=== PATIENT | male | born 1970 | race Caucasian/White ===

== ENCOUNTER 2019-08-25 11:53 | Emergency (ER) | payer BC ==
[2019-08-25 13:43] LABS: ABS Lymphocytes 1.6 10^3/ul (1.0-4.8); ABS Monocytes 0.6 10^3/ul (0-0.8); ABS Neutrophils 5.2 10^3/ul (1.5-7.7); Eosinophil % 0.5 %; Hematocrit 44 % (42-52); Hemoglobin 15.6 g/dL (14.0-18.0); Lymphocyte % 21.5 %; Mean Corpuscular HGB Conc 35 g/dL (31-36); Mean Corpuscular Hemoglobin 33 pg (27-31); Mean Corpuscular Volume 94 fL (80-94); Mean Platelet Volume 7.6 fL (7.4-10.4); Nucleated Red Blood Cells % 0.1; Platelet Count 245 10^3/uL (150-450); Red Blood Count 4.69 10^6 /uL (4.18-5.48); Red Cell Distribution Width 13 % (10-15); White Blood Count 7.5 10^3/uL (3.5-10.8)
--- NOTE | 2019-08-25 13:47 | ED ---
Abdominal Pain/Male - HPI Summary HPI Summary: Pt is a 48 y/o M presenting to the ED for LLQ abdominal pain. Pt states he was stepping off a ladder at work when he missed a step after which he began to feel left-sided flank pain, left-sided back pain, and LLQ abdominal pain. Pt describes the back pain as dull and the abdominal pain as sharp. Pt rates the pain as 8/10 in severity. Pt admits nausea. Pt denies fever, vomiting, diarrhea , changes in bowel movements, or hematuria. Pt was asymptomatic before the pain began. Pt has a PMHx of De Quervains syndrome and a FMHx of DM, stomach cancer , and breast cancer. Pt stopped tobacco use 2 weeks ago. Pt works in construction. Allergies noted. - History of Current Complaint Chief Complaint: EDFlankPain Stated Complaint: LEFT ABDOMINAL PAIN PER PT Time Seen by Provider: 08/25/19 13:28 Hx Obtained From: Patient Onset/Duration: Sudden Onset, Lasting Hours, Still Present Timing: Constant, Lasting Hours Severity Initially: Severe Severity Currently: Severe Pain Intensity: 8 Pain Scale Used: 0-10 Numeric Location: Discrete At: LLQ, Flank - Left Radiates: Yes Radiates to: Back - Lower left Character: Sharp - Abdominal pain, Dull - Back pain Aggravating Factor(s): Nothing Alleviating Factor(s): Nothing Associated Signs And Symptoms: Positive: Back Pain - Left lower, Nausea, Other - Negative changes in bowel movements. Negative: Fever, Urinary Symptoms - Negative hematuria, Vomiting, Diarrhea - Allergies/Home Medications Allergies/Adverse Reactions: Allergies Allergy/AdvReac Type Severity Reaction Status Date / Time No Known Allergies Allergy Verified 08/25/19 12:06 Home Medications: Home Medications Cholecalciferol TAB* [Vitamin D TAB*] 1,000 unit PO DAILY 08/25/19 [History Confirmed 08/25/19] Escitalopram * [Lexapro 10 mg (NF)] 10 mg PO DAILY 08/25/19 [History Confirmed 08/25/19] Ibuprofen TAB* [Motrin TAB* 400 MG] 400 mg PO Q6H PRN 08/25/19 [History Confirmed 08/25/19] Tadalafil (Nf) [Cialis (NF)] 5 mg PO .EVERY 3 WEEKS 08/25/19 [History Confirmed 08/25/19] traZODone TAB* [Desyrel TAB*] 50 mg PO BEDTIME 08/25/19 [History Confirmed 08/25] PMH/Surg Hx/FS Hx/Imm Hx Previously Healthy: Yes Endocrine/Hematology History: Denies: Hx Diabetes Cardiovascular History: Denies: Hx Hypercholesterolemia, Hx Hypertension Musculoskeletal History: Reports: Other Musculoskeletal History - Hx De Quervain 's syndrome Sensory History: Denies: Hx Legally Blind, Hx Deafness Opthamlomology History: Denies: Hx Legally Blind EENT History: Denies: Hx Deafness - Surgical History Surgical History: None Surgery Procedure, Year, and Place: None - Immunization History Date of Influenza Vaccine: 08/08/2019 Immunizations Up to Date: Yes Infectious Disease History: No Infectious Disease History: Denies: Traveled Outside the [place] in Last 30 Days - Family History Known Family History: Positive: Diabetes, Other - Stomach and breast cancer - Social History Occupation: Employed Full-time Alcohol Use: Occasionally Hx Substance Use: Yes Substance Use Type: Reports: Marijuana Substance Use Comment - Amount & Last Used: couple times a month Hx Tobacco Use: Yes Smoking Status (MU): Former Smoker Review of Systems Negative: Fever Positive: Abdominal Pain - LLQ and left flank, Nausea, Other - Negative changes in bowel movements. Negative: Vomiting, Diarrhea Negative: hematuria Positive: Myalgia - Back pain All Other Systems Reviewed And Are Negative: Yes Physical Exam - Summary Physical Exam Summary: Constitutional: Well-developed, Well-nourished, Alert. (-) Distressed Skin: Warm, Dry HENT: Normocephalic; Atraumatic Eyes: Conjunctiva normal Neck: Musculoskeletal ROM normal neck. (-) JVD, (-) Stridor, (-) Nuchal rigidity Cardio: Rhythm regular, rate normal, Heart sounds normal; Intact distal pulses; Radial pulses are 2+ and symmetric. (-) Murmur Pulmonary/Chest wall: Effort normal. (-) Respiratory distress, (-) Wheezes, (-) Rales Abd: Soft, (-) Distension, (-) Rebound. LLQ tenderness with voluntary guarding. Musculoskeletal: (-) Edema. Lymph: (-) Cervical adenopathy Neuro: Alert, Oriented x3 Psych: Mood and affect Normal Triage Information Reviewed: Yes Vital Signs On Initial Exam: Initial Vitals Temp Pulse Resp BP Pulse Ox 98.3 F 57 18 137/87 97 08/25/19 12:01 08/25/19 12:01 08/25/19 12:01 08/25/19 12:01 08/25/19 12:01 Vital Signs Reviewed: Yes Procedures - Sedation Patient Received Moderate/Deep Sedation with Procedure: No Diagnostics - Vital Signs Vital Signs Temp Pulse Resp BP Pulse Ox 08/25/19 13:00 99.4 F 51 17 142/79 97 08/25/19 12:01 98.3 F 57 18 137/87 97 - Laboratory Lab Results: Lab Results 08/25/19 Range/Units 13:29 WBC 7.5 (3.5-10.8) 10^3/uL RBC 4.69 (4.18-5.48) 10^6 /uL Hgb 15.6 (14.0-18.0) g/dL Hct 44 (42-52) % MCV 94 (80-94) fL MCH 33 H (27-31) pg MCHC 35 (31-36) g/dL RDW 13 (10-15) % Plt Count 245 (150-450) 10^3/uL MPV 7.6 (7.4-10.4) fL Neut % (Auto) 70.1 % Lymph % (Auto) 21.5 % Starke % (Auto) 7.6 % Eos % (Auto) 0.5 % Baso % (Auto) 0.3 % Absolute Neuts (auto) 5.2 (1.5-7.7) 10^3/ul Absolute Lymphs (auto) 1.6 (1.0-4.8) 10^3/ul Absolute Monos (auto) 0.6 (0-0.8) 10^3/ul Absolute Eos (auto) 0.0 (0-0.6) 10^3/ul Absolute Basos (auto) 0.0 (0-0.2) 10^3/ul Absolute Nucleated RBC 0.0 10^3/ul Nucleated RBC % 0.1 Result Diagrams: 08/25/19 13:29 08/25/19 13:29 Lab Statement: Any lab studies that have been ordered have been reviewed, and results considered in the medical decision making process. - CT Abdomen/Pelvis CT CT Interpretation Completed By: Radiologist Summary of CT Findings: Abdomen/Pelvis CT IMPRESSION: 1. Evaluation of the gastrointestinal tract is limited in the absence of oral contrast. There is questionable wall thickening of the sigmoid colon measuring up to 6 mm. Please. correlate to signs and symptoms of distal colitis. 2. Likely hepatic steatosis. Reviewed by ED physician. Re-Evaluation - Re-Evaluation First Eval Re-Evaluation Time: 15:40 Change: Improved Comment: At 15:40, pt was on his phone and pain improved. Second Eval Re-Evaluation Time: 16:35 Change: Unchanged Comment: At 16:35, pt has RBC in his urine and will order abdomen/pelvis CT to assess for stone Third Eval Re-Evaluation Time: 17:15 Change: Improved - Patient reports pain is improved, CT w possible colitis, patient denies infectious symptoms. Advised to return if he develops infectious symptoms. Abdominal Pain Male Course/Dx - Course Course Of Treatment: 48-year-old male who presents with left lower quadrant and left flank abdominal pain. DDx includes renal stone, diverticulitis, muscle strain, testicular torsion. Exam relatively unremarkable today, no rigidity or suggestions of acute surgical abd. Pt with negative Mayers's on exam. Will obtain cbc to assess for underlying infection. Will obtain UA to assess for UTI and stone. Denies testicular pain, low suspicion for pathology Will continue to monitor - Diagnoses Provider Diagnoses: LLQ abdominal pain, Left flank pain Discharge ED - Sign-Out/Discharge Documenting (check all that apply): Patient Departure - Discharge - Discharge Plan Condition: Stable Disposition: HOME Patient Education Materials: Abdominal Pain (ED) Referrals: Cydney Church MD [Primary Care Provider] - Additional Instructions: You were seen in the emergency department for lower abdominal pain. Your CT scan did not show any abnormalities aside from mild inflammation of your colon. If you have worsening pain, diarrhea, fevers please return to the emergency department If any studies were not completed at the time of discharge you will be called with the relevant results. Please follow up with your primary care doctor in next 2-3 days and return to emergency department for worsening or concerning symptoms. It was a pleasure taking care of you today. - Billing Disposition and Condition Condition: STABLE Disposition: Home - Attestation Statements Document Initiated by Scribe: Yes Documenting Scribe: Tracy Frye Provider For Whom Scribe is Documenting (Include Credential): Zina Holland MD Scribe Attestation: I, Tracy Frye, scribed for Zina Holland MD on 08/25/19 at 1731. Scribe Documentation Reviewed: Yes Provider Attestation: The documentation as recorded by the scribe, Tracy Frye accurately reflects the service I personally performed and the decisions made by me, Zina Holland MD Status of Scribe Document: Viewed
[2019-08-25] MEDS ORDERED: NS 0.9% 1000 ML** 1,000 ML IV ONE (13:50)
[2019-08-25] MEDS ORDERED: Ondansetron INJ* 2 MG/ML VIAL IV ONE (13:50)
[2019-08-25] MEDS ORDERED: Ketorolac INJ* 30 MG/ML 1 ML VIAL IV ONE (13:50)
[2019-08-25 14:00] LABS: Albumin 4.6 g/dL (3.2-5.2); Albumin/Globulin Ratio 1.7 (1-3); BUN/Creatinine Ratio 17.3 (8-20); Calcium 9.5 mg/dL (8.6-10.3); EGFR African American 135.7 (>60); EGFR Non-African American 112.1 (>60); Globulin 2.7 g/dL (2-4); Potassium 4.2 mmol/L (3.5-5.0); Total Bilirubin 0.5 mg/dL (0.2-1.0); Total Protein 7.3 g/dL (6.4-8.9)
[2019-08-25 16:21] LABS: Urine Appearance Cloudy; Urine Bacteria 1+ (Absent); Urine Bilirubin Negative (Negative); Urine Blood Negative (Negative); Urine Color Yellow; Urine Glucose Negative (Negative); Urine Ketones 1+ (Negative); Urine Nitrite Negative (Negative); Urine Protein 1+(30 mg/dL) (Negative); Urine Red Blood Cell 2+(6-10/hpf) (Absent); Urine Specific Gravity 1.023 (1.010-1.030); Urine Urobilinogen Negative (Negative); Urine White Blood Cell Absent (Absent)
[2019-08-25] MEDS ORDERED: Iohexol 300* (CONTRAST) 10 ML SDV IV ONE (16:31)
[2019-08-25 17:23] VITALS: BP 133/79
== END 2019-08-25 17:49 | disposition home or self-care (01) ==
LOC: ED 11:53
DX: R10.32 Left lower quadrant pain (principal); M54.9 Dorsalgia, unspecified; R11.2 Nausea with vomiting, unspecified; Z79.899 Other long term (current) drug therapy; Z87.891 Personal history of nicotine dependence
CPT/HCPCS: 36415; 74177; 80053; 81003; 81015; 85025; 87086; 96361; 96374; 96375; 99282; J1885; J2405; Q9967